=== PATIENT | male | born 1995 | race Caucasian/White ===

== ENCOUNTER 2018-01-04 03:20 | Emergency (ER) | payer OTHER ==
[2018-01-04 04:07] VITALS: BMI 21.7
[2018-01-04 04:13] VITALS: BP 120/77; PULSE 86; RESP 16; TEMP 98.4; O2SAT 98
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
--- NOTE | 2018-01-04 07:33 | ED PDOC ---
- ECG O2 Sat by Pulse Oximetry: 98 (RA) Medical Decision Making Medical Decision Making: endorsed by Dr. Mayorga. Patient awaiting results of CT head and facial bones. [facility] reading is negative for pathology. Patient is awake and alert. ambulatory. stable. will discharge. Disposition Doctor Will See Patient In The: Office Counseled Patient/Family Regarding: Diagnosis - Clinical Impression Clinical Impression: Head injury - POA Present On Arrival: Falls Or Trauma - Disposition Referrals: [facility] [Outside] Disposition: Routine/Home Disposition Time: 07:30 Condition: STABLE Instructions: Head Injury (ED) Forms: [employer] (Bel[place]ian)
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
== END 2018-01-04 07:38 | disposition home or self-care (01) ==
LOC: H.ER 03:20
DX: S09.90XA Unspecified injury of head, initial encounter (principal); S09.93XA Unspecified injury of face, initial encounter; Y04.0XXA Assault by unarmed brawl or fight, initial encounter; Y92.89 Other specified places as the place of occurrence of the external cause; F41.9 Anxiety disorder, unspecified